=== PATIENT | male | born 1970 | race Caucasian/White ===

== ENCOUNTER → 2016-11-08 | Outpatient (CLI) | payer OTHER ==
[~2016-11-08] MED LIST: GARL400T4; GLC/500 PO; HYDR-5688 PO; LACT3000 PO; LISINOPRIL/HCTZ; LSN/10125 PO; MULT-506 PO; OMEG10007 PO; PROB1CAP6
== END | disposition home or self-care (01) ==
LOC: C.CPL 15:45
PROVIDERS: ATTEND Neuromusculoskeletal Medicine & OMM
DX: M25.561 Pain in right knee (principal)

== ENCOUNTER 2016-11-13 11:35 | Day surgery (SDC) | payer OTHER ==
[2016-11-12 08:27] VITALS: BMI 41.0
--- NOTE | 2016-11-12 16:02 | HISTORY & PHYSICAL EXAMINATION ---
DATE OF ADMISSION: 11/13/2016 HISTORY OF PRESENT ILLNESS: The patient is a 46-year-old, 6 foot, 300 pound white male who presents with complaints of ongoing pain about his right knee with an exam consistent with that of a torn medial and lateral menisci. He has been nonresponsive to conservative therapy including physical therapy, anti-inflammatories, relative rest, activity modification and presents for arthroscopic evaluation after failing attempts at conservative management. The patient has had previous injections, anti-inflammatories and bracing. PAST MEDICAL HISTORY: Significant for hypertension and diabetes. FAMILY HISTORY: Unremarkable and noncontributory. SOCIAL HISTORY: The patient denies history of alcohol, smoking or recreational drug use. PAST SURGICAL HISTORY: The patient has had previous right knee arthroscopy. ALLERGIES: None. MEDICATIONS: None. PAST MEDICAL HISTORY: Otherwise unremarkable. See history of present illness for pertinent positives. PHYSICAL EXAMINATION: GENERAL: Reveals a very pleasant 46-year-old, 6 foot, 300 pound white male with complaints of ongoing pain attributable to his right knee. He has an exam consistent with that of medial meniscal tears. HEAD, EYES, EARS, NOSE, AND THROAT: Otherwise unremarkable, atraumatic, normocephalic. HEART: Regular at 72 beats per minute. No murmurs noted. LUNGS: Clear without rales, rhonchi, or wheezes noted. ABDOMEN: Soft, nontender, nondistended. Bowel sounds are present in all 4 quadrants. RECTAL: No rectal examination performed. MUSCULOSKELETAL EXAMINATION: Consistent with that of a torn medial meniscus with positive Seth and circumduction findings noted mild to moderate effusion, medial and lateral joint line pain, tenderness. PLAN: For arthroscopy, arthroscopic partial medial meniscectomies pending findings at time of surgery, postoperative pain management, DVT prophylaxis.
[~2016-11-13] VITALS: Ht 182.9 cm; Wt 136.4 kg
--- NOTE | 2016-11-13 11:29 | History & Physical Bridge Note ---
H&P Re-Evaluation Bridge Note: I have examined the patient, reviewed the History & Physical and in the interval since the performance of the History & Physical I have noted the following changes of clinical significance: No changes noted
[~2016-11-13 11:35] MED LIST changes: +BUPIVACAINE 0.25% 30 ML VIAL ONE; +BUPIVACAINE 0.5 % 5 MG/1 ML PF 10ML VIAL ONE; +CEFAZOLIN 1000MG/55 ML D5W IV SCH; -GARL400T4; -HYDR-5688 PO; +LACTATED RINGER'S 1000ML 1,000 ML IV SCH; -LISINOPRIL/HCTZ; +PATIENT'S HEIGHT AND/OR WEIGHT NEEDED SCH; -PROB1CAP6
[2016-11-13] MEDS ORDERED: CEFAZOLIN IV 3,000 MG/65 ML D5W IV ONE (11:51)
[2016-11-13 12:04] VITALS: BP 153/87; PULSE 80; TEMP 36.6; O2SAT 97; Ht 182.9 cm; Wt 136.4 kg
[2016-11-13] MEDS ORDERED: DEXAMETHASONE SOD INJ 4 MG/ML VIAL ONE (12:18)
[2016-11-13] MEDS ORDERED: ONDANSETRON INJ 2 MG/ML 2 ML VIAL ONE (12:18)
[2016-11-13] MEDS ORDERED: LIDOCAINE HCL 2% 2 ML VIAL (20MG/ML) ONE (12:18)
[2016-11-13] MEDS ORDERED: SUCCINYLCHOLINE CHLORIDE 20 MG/ML 10 ML VIAL IV ONE (12:18)
[2016-11-13] MEDS ORDERED: PROPOFOL IV EMULSION 10 MG/ML 20 ML VIAL IV ONE (12:18)
[2016-11-13] MEDS ORDERED: FENTANYL CITRATE INJ 50 MCG/1 ML 2 ML VIAL ONE ×2 (12:23→14:49)
[2016-11-13] MEDS ORDERED: MIDAZOLAM HCL 1 MG/ML 2ML VIAL ONE (12:23)
[2016-11-13] MEDS ORDERED: KETOROLAC TROMETHAMINE 30 MG/ML VIAL IV. PRN (13:00)
[2016-11-13] MEDS ORDERED: ATROPINE SULFATE 0.1 MG/ML 5ML SYR IV PRN (13:00)
[2016-11-13] MEDS ORDERED: ONDANSETRON INJ 2 MG/ML 2 ML VIAL IV PRN ×2 (13:00→14:45)
[2016-11-13] MEDS ORDERED: FENTANYL CITRATE INJ 50 MCG/1 ML 2 ML VIAL IV PRN (13:00)
[2016-11-13] MEDS ORDERED: LABETALOL HCL IV 5 MG/ML 20ML IV PRN (13:00)
--- NOTE | 2016-11-13 14:28 | Discharge Instructions ---
Discharge Instructions Date of Service Nov 13, 2016. Visit Reason for Visit: Other Tear Of Medial Meniscus, Right Knee Discharge Discharge Diagnosis / Problem: right knee medial meniscus tear Discharge Goals Goal(s): Decrease discomfort, Improve function, Increase independence Activity Recommendations Activity Limitations: as noted below Weightbearing Status: Left weightbearing (as tolerated) Anesthesia . Post Anesthesia Instructions: If you have had General Anesthesia or IV Sedation: * Do not drive today. * Resume driving when surgeon permits. * Do not make important decisions or sign legal documents today. * Call surgeon for: 1. Temperature elevations greater than 101 degrees F. 2. Uncontrollable pain. 3. Excessive bleeding. 4. Persistent nausea and vomiting. 5. Medication intolerance (nausea, vomiting or rash). * For nausea and vomiting use only clear liquids such as: tea, soda, bouillon until nausea subsides, then gradually increase diet as tolerated. * If you have any concerns or questions, call your surgeon's office. If physician is unavailable and it is an emergency, call 911 or go to the nearest emergency room. . Instructions / Follow-Up Instructions / Follow-Up ACTIVITY RECOMMENDATIONS: * You may walk on the leg with or without crutches as comfort permits. * Bending of the knee should start at once. * Do not shower for 48 hours following surgery. SPECIAL CARE INSTRUCTIONS: * You may cleanse the skin adjacent to the small wounds with soap and water at the time of the first dressing change. * The application of an ice bag to the front and sides of the knee will decrease swelling and discomfort for the first 48 hours. * The small incisions may be sore and develop bruising. This bruising does not require any special care. SPECIAL PRECAUTIONS: * If you experience unusual pain unrelieved by prescriptions, temperature elevation (100 degrees F. or above) or progressive swelling or bleeding, you should contact our office at for further evaluation. * You may have been prescribed pain medication. If you experience nausea and/or fine skin rash, discontinue this medication and contact our office at for an alternate medication. DRESSING: * Dressing should be comfortable and absorb any leakage of fluid and/or blood. * The dressing may become moist or bloodstained. * Dressing may be removed _24 hours_ after surgery and bandaids placed over the small surgical incisions. If can be removed sooner if it becomes very soiled or loose. * Bandaids may be used over next several days as needed and can be discontinued when there is not further drainage from the wounds. FOLLOW UP VISIT: If appointment is not already scheduled: Please call [facility] to make a follow-up appointment for your surgery at . Diet Recommendations Recommended Home Diet: resume previous diet Pending Studies Studies pending at discharge: no Medical Emergencies . Who to Call and When: Medical Emergencies: If at any time you feel your situation is an emergency, please call 911 immediately. . Non-Emergent Contact Non-Emergency issues call your: Primary Care Provider . . "Provider Documentation" section prepared by Lakhwinder Johnson. . [facility] Drug Monitoring Program Search Results: patient reviewed within database, no issues identified
[2016-11-13] MEDS ORDERED: SODIUM CHLORIDE 0.9% 1000ML 1,000 ML IV SCH (14:32)
[2016-11-13] MEDS ORDERED: HYDR-5688 PO ×2 (14:32→14:38)
[2016-11-13] MEDS ORDERED: HYDROCODONE/ACETAMOPHEN 5/325MG TAB PO PRN ×2 (14:45)
[2016-11-13] MEDS ORDERED: BUPIVACAINE/EPINEPHRINE 0.5% MPF 1:200,000 30 ML VIAL ONE (14:59)
[2016-11-13 16:05] VITALS: BP 154/78; PULSE 73; TEMP 36.5; O2SAT 94
--- NOTE | 2016-11-13 16:13 | Anesthesiology Progress Note ---
Anesthesia Post Op Note Date & Time Nov 13, 2016 at 16:11 Vital Signs Pain Intensity: 0 Vital Signs Past 12 Hours Date Time Temp Pulse Resp B/P (MAP) Pulse Ox O2 Delivery O2 Flow Rate FiO2 11/13/16 15:55 37 69 16 154/87 94 Room Air 11/13/16 15:45 78 16 151/96 94 Room Air 11/13/16 15:35 74 16 154/84 93 Oxymask 10 11/13/16 15:25 74 16 147/88 95 Oxymask 10 11/13/16 15:16 36.2 90 16 160/91 95 Oxymask 10 11/13/16 12:04 36.6 80 18 153/87 (109) 97 Room Air Notes Mental Status: alert / awake / arousable, participated in evaluation Pt Amnestic to Procedure: Yes Nausea / Vomiting: adequately controlled Pain: adequately controlled Airway Patency, RR, SpO2: stable & adequate BP & HR: stable & adequate Hydration State: stable & adequate Anesthetic Complications: no major complications apparent
[2016-11-13 16:35] VITALS: BP 145/87; PULSE 82; O2SAT 96
[2016-11-13 17:05] VITALS: BP 144/71; PULSE 73; TEMP 36.5; O2SAT 95
[2016-11-13] MEDS ORDERED: NURSING VERBAL MED ORDER ONE (17:45)
[2016-11-13] MEDS ORDERED: KETOROLAC TROMETHAMINE 30 MG/ML VIAL IV. ONE (18:00)
--- NOTE | 2016-11-26 13:33 | OPERATIVE REPORT ---
DATE OF OPERATION: 11/13/2016 PREOPERATIVE DIAGNOSES: Right knee torn medial meniscus, torn lateral meniscus, chondral lesion medial femoral condyle. POSTOPERATIVE DIAGNOSES: Complex tear, posterior medial meniscus; complex tear, posterior horn lateral meniscus; chondroplasty, medial femoral condyle and patellofemoral joint. SURGEON: Dr. Walker. ANESTHESIA: General. COMPLICATIONS: None. GROSS FINDINGS: The patient presents today being seen and evaluated with complaints of ongoing pain attributable to his right knee. He has been nonresponsive to conservative therapy and presents for knee arthroscopy. At time of surgery, the above findings were noted. PROCEDURE: After proper prepping and draping of the right lower extremity, arthroscopic examination beginning in the region of the medial and lateral gutters, revealed there to be a complex tear of the posterior horn of the medial meniscus. Subsequently, a partial posterior horn medial meniscectomy was performed. 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 Anterior and posterior cruciate ligaments were visualized and probed and noted to be intact. Medial and lateral collateral ligaments were visualized and probed and noted to be intact. Lateral meniscus noted evidence of a complex tear involving the posterior horn. Subsequently, a partial posterior horn lateral meniscectomy was performed. Diffuse grade 3 patellofemoral changes were noted. Subsequently, a chondroplasty of the patellofemoral joint back to stable margin was performed. All particulate matter and debris was removed. Skin portals were closed with 4-0 nylon. Sterile compression dressing was placed. The patient was taken to recovery room in stable condition. I attest to the content of the Intraoperative Record and any orders documented therein. Any exception s are noted below.
== END 2016-11-13 17:25 | disposition home or self-care (01) ==
LOC: C.ACU 11:35
PROVIDERS: ATTEND Orthopaedic Surgery
DX: M23.251 Derangement of posterior horn of lateral meniscus due to old tear or injury, right knee (principal); M23.222 Derangement of posterior horn of medial meniscus due to old tear or injury, left knee; I10 Essential (primary) hypertension; E11.9 Type 2 diabetes mellitus without complications

== ENCOUNTER → 2016-12-31 | Outpatient (CLI) | payer OTHER ==
[~2016-12-31] MED LIST changes: -BUPIVACAINE 0.25% 30 ML VIAL ONE; -BUPIVACAINE 0.5 % 5 MG/1 ML PF 10ML VIAL ONE; -CEFAZOLIN 1000MG/55 ML D5W IV SCH; +HYDR-5688 PO; -LACTATED RINGER'S 1000ML 1,000 ML IV SCH; -PATIENT'S HEIGHT AND/OR WEIGHT NEEDED SCH
[2016-12-31 10:03] LABS: ESTIMATED AVERAGE GLUCOSE 174 mg/dl; HA1C FLAG Normal (Normal)
[2016-12-31 10:11] LABS: ALT/SGPT 79 U/L (12-78); BLOOD UREA NITROGEN 13 mg/dl (7-18); BUN/CREATININE RATIO 16.1 (10-20); CALCIUM 9.2 mg/dl (8.5-10.1); CARBON DIOXIDE 25 mmol/L (21-32); CHLORIDE 101 mmol/L (98-107); CHOLESTEROL 126 mg/dl (0-200); CREATININE 0.78 mg/dl (0.60-1.40); GLUCOSE 193 mg/dl (70-99); POTASSIUM 4.1 mmol/L (3.5-5.1); SODIUM 135 mmol/L (136-145); TRIGLYCERIDES 121 mg/dl (0-150); VERY LOW DENSITY LIPOPROT CALC 24 mg/dl
[2016-12-31 10:15] LABS: RATIO 7.8 mcg/mg (0-30.0)
[2016-12-31 10:22] LABS: ALKALINE PHOSPHATASE 77 U/L (45-117); AST/SGOT 31 U/L (15-37); CHOLESTEROL/HDL RATIO 3.2; HDL CHOLESTEROL 39 mg/dl; LDL CHOLESTEROL CALCULATED 63 mg/dl
--- NOTE | 2016-12-31 10:39 | DIAGNOSTIC IMAGING REPORT ---
CERVICAL SPINE 4 VIEWS CLINICAL HISTORY: Upper extremity paresthesias. FINDINGS: AP, lateral, odontoid, and swimmer's views of the cervical spine are obtained. No prior studies are available for comparison at the time of dictation. The skeletal structures appear well mineralized. There is no radiographic evidence of fracture or malalignment. Vertebral body height and alignment are maintained throughout the cervical spine. There is straightening of the cervical lordosis with reversal centered at C4. The spinolaminar line is maintained. The odontoid process and lateral masses appear intact on the open-mouth view. The spinous processes are intact. There is mild degenerative disc space narrowing seen at C6-C7. Posterior disc-osteophyte complexes at C5-C6 and C6-C7 may contribute to acquired compromise of the central canal. Tiny anterior osteophytes are seen in the mid to lower cervical region. The prevertebral soft tissues are normal in appearance. The partially imaged apical lung parenchyma appears clear. IMPRESSION: 1. No acute bony abnormality is seen involving the cervical spine. 2. Mild spondylotic change as above, greatest at C5-C6 and C6-C7. Dictated: 12/31/2016 9:33 AM Transcribed: 12/31/2016 10:38 AM [email or web address] Electronically signed by: Stan Guevara M.D. 12/31/2016 10:51 AM Dictated Date/Time: 12/31/2016 9:33 AM
== END | disposition home or self-care (01) ==
LOC: C.RAD 08:34
PROVIDERS: ATTEND Family Medicine
DX: E11.9 Type 2 diabetes mellitus without complications (principal); E78.5 Hyperlipidemia, unspecified; I10 Essential (primary) hypertension; R20.2 Paresthesia of skin